=== PATIENT | male | born 1965 | race Caucasian/White ===

== ENCOUNTER 2019-02-13 09:28 | Emergency (ER) | payer SELFPAY ==
[2019-02-13] MEDS ORDERED: KETOROLAC TROMETHAMINE 60 MG/2 ML SDV IM ONE (09:58)
[2019-02-13] MEDS ORDERED: DEXAMETHASONE SOD PHOS INJ 10 MG/1 ML VIAL IM ONE (09:58)
--- NOTE | 2019-02-13 10:00 | ER Document Report ---
ED Medical Screen (RME) - General Chief Complaint: Hip Pain Stated Complaint: RIGHT HIP PAIN Time Seen by Provider: 02/13/19 09:58 Mode of Arrival: Ambulatory Information source: Patient Notes: 54-year-old male presented to ED for complaint of pain in his right hip right groin down his right leg to just below his knee. He states he did not fall or injure himself. He does smoke. He states this started yesterday. I have greeted and performed a rapid initial assessment of this patient. A comprehensive ED assessment and evaluation of the patient, analysis of test results and completion of medical decision making process will be conducted by an additional ED providers. TRAVEL OUTSIDE OF THE [place] IN LAST 30 DAYS: No - Related Data Allergies/Adverse Reactions: No Known Allergies Allergy (Unverified 02/13/19 09:48) Past Medical History - Social History Frequency of alcohol use: Occasional Drug Abuse: None Physical Exam - Vital signs Vitals: Temp Pulse Resp BP Pulse Ox 97.9 F 110 H 16 143/107 H 95 02/13/19 09:36 02/13/19 09:36 02/13/19 09:36 02/13/19 09:36 02/13/19 09:36 Course - Vital Signs Vital signs: Temp Pulse Resp BP Pulse Ox 97.9 F 110 H 16 143/107 H 95 02/13/19 09:36 02/13/19 09:36 02/13/19 09:36 02/13/19 09:36 02/13/19 09:36
--- NOTE | 2019-02-13 10:46 | RADIOLOGY REPORT (SQ) ---
EXAM DESCRIPTION: L SPINE WHOLE COMPLETED DATE/TIME: 02/13/2019 10:30 am REASON FOR STUDY: Pain COMPARISON: None. NUMBER OF VIEWS: Five views including obliques. TECHNIQUE: AP, lateral, oblique, and sacral radiographic images acquired of the lumbar spine. LIMITATIONS: None. FINDINGS: MINERALIZATION: Normal. SEGMENTATION: There are 5 lumbar-type vertebral bodies. There is no transition anatomy at the lumbos acral junction. ALIGNMENT: Normal. VERTEBRAE: The lumbar vertebral body heights are preserved. There is no fracture. DISCS: The intervertebral disc spaces are preserved. There is mild endplate osteophyte formation thr oughout the lumbar spine. POSTERIOR ELEMENTS: No pars interarticularis defects. HARDWARE: None in the spine. PARASPINAL SOFT TISSUES: Mild atherosclerotic calcification of the abdominal aorta. PELVIS: Intact. OTHER: No other finding. IMPRESSION: No fracture or malalignment of the lumbar spine. TECHNICAL DOCUMENTATION: JOB ID: [id number] [employer]- All Rights Reserved Reading location - IP/workstation name: [email or web address]
--- NOTE | 2019-02-13 10:48 | RADIOLOGY REPORT (SQ) ---
EXAM DESCRIPTION: HIP RIGHT AP/LATERAL COMPLETED DATE/TIME: 02/13/2019 10:30 am REASON FOR STUDY: Pain COMPARISON: None. NUMBER OF VIEWS: Two views. TECHNIQUE: AP pelvis and additional frog-leg view of the right hip. LIMITATIONS: None. FINDINGS: MINERALIZATION: Normal. RIGHT HIP: No fracture or dislocation. Mild osteophyte formation at the superolateral aspect of the acetabulum. LEFT HIP: No fracture or dislocation. PUBIS AND ISCHIUM: The ilioischial and iliopectineal lines are intact. There is no diastasis of the pubic symphysis. PELVIS: No fracture. SACRUM: The sacrum is obscured by overlying bowel. SOFT TISSUES: No findings. OTHER: No other finding. IMPRESSION: 1. No acute fracture or dislocation of the right hip. 2. Mild right femoroacetabular joint osteoarthrosis. TECHNICAL DOCUMENTATION: JOB ID: [id number] [employer]- All Rights Reserved Reading location - IP/workstation name: [email or web address]
--- NOTE | 2019-02-13 10:59 | ER Document Report ---
HPI - HPI Patient complains to provider of: Right hip pain Time Seen by Provider: 02/13/19 09:58 Onset: Yesterday Onset/Duration: Sudden Quality of pain: Achy Severity: Severe Pain Level: 5 Context: This 54-year-old male presents emergency department with complaints of right hip pain that started yesterday morning. He reports it hurt all day was difficult to sleep he took Aleve without relief of symptoms. He remembers tweaking the hip Tuesday when he was playing golf. Patient works at a golf course. He denies past medical history of injury to the hip. No other complaints such as fever vomiting diarrhea denies back pain. Associated Symptoms: None Exacerbated by: Denies, Movement Relieved by: Denies Similar symptoms previously: No Recently seen / treated by doctor: No - REPRODUCTIVE Reproductive: DENIES: : Past Medical History - General Information source: Patient - Social History Smoking Status: Unknown if Ever Smoked Cigarette use (# per day): No Frequency of alcohol use: Occasional Drug Abuse: None Occupation: Works at a golf course Family History: None Patient has suicidal ideation: No Patient has homicidal ideation: No - Past Medical History Cardiac Medical History: Reports: Hx Hypertension Renal/ Medical History: Reports: Hx Kidney Stones Past Surgical History: Reports: Hx Kidney (Renal Surgery) Vertical Provider Document - CONSTITUTIONAL Agree With Documented VS: Yes Exam Limitations: No Limitations General Appearance: WD/WN, No Apparent Distress - INFECTION CONTROL TRAVEL OUTSIDE OF THE [place] IN LAST 30 DAYS: No - HEENT HEENT: Atraumatic, Normocephalic. negative: Conjuctival Injection - NECK Neck: Normal Inspection, Supple. negative: Lymphadenopathy-Left, Lymphadenopathy-Right - RESPIRATORY Respiratory: Breath Sounds Normal, No Respiratory Distress - CARDIOVASCULAR Cardiovascular: Regular Rate - GI/ABDOMEN Gastrointestinal: Abdomen Soft, Abdomen Non-Tender - BACK Back: Normal Inspection - MUSCULOSKELETAL/EXTREMETIES Musculoskeletal/Extremeties: MAEW, FROM, Tender - Right hip tender to palpate no erythema no swelling no warmth. Patient has full range of motion able to flex extend right leg without problems. Complains of pain to the hip with straight leg extension at 30 degrees. Denies back pain Course - Re-evaluation Re-evalutation: 02/13/19 10:58 54-year-old male presents emergency department with right hip pain. 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 He reports he remembers tweaking is a little on Tuesday but his hip felt okay Tuesday and Tuesday and Tuesday. Reports yesterday morning he woke up with severe pain. He took Aleve with no relief of pain. Hip/Pelvis X-Ray 02/13/19 09:59 IMPRESSION: 1. No acute fracture or dislocation of the right hip. 2. Mild right femoroacetabular joint osteoarthrosis. Lumbar Spine X-Ray 02/13/19 09:59 IMPRESSION: No fracture or malalignment of the lumbar spine. 02/13/19 11:22 Patient was instructed on osteoarthritis. He was instructed on NSAIDs anti- inflammatories for the pain he was also instructed that his blood pressure was very high and he needs follow-up with primary care provider for that. He reports his blood pressure is always high. He was warned of the risk of having high blood pressure to include stroke. He verbalized understanding to all instructions. Dictation of this chart was performed using voice recognition software; therefore, there may be some unintended grammatical errors. - Vital Signs Vital signs: Temp Pulse Resp BP Pulse Ox 97.9 F 110 H 16 143/107 H 95 02/13/19 09:36 02/13/19 09:36 02/13/19 09:36 02/13/19 09:36 02/13/19 09:36 - Diagnostic Test Radiology reviewed: Image reviewed, Reports reviewed Discharge - Discharge Clinical Impression: Right hip pain Osteoarthritis Qualifiers: Osteoarthritis location: hip Osteoarthritis type: unspecified Laterality: right Qualified Code(s): M16.11 - Unilateral primary osteoarthritis, right hip Condition: Stable Disposition: HOME, SELF-CARE Instructions: Anti-Inflammatory Medication ([facility]), Osteoarthritis ([facility]) Additional Instructions: *You have been evaluated for right hip pain, osteoarthritis *Follow up with orthopedics for continued pain *Take medication as prescribed *Return to ED for worsening condition, changes, needs Monitor your blood pressure. Your blood pressure was elevated today. This may be because you were anxious, in pain or because you need medication. It is important to follow up with your primary care provider for full evaluation. Prescriptions: Naproxen [EC-Naproxen] 500 mg PO BID #15 tablet.dr Forms: Elevated Blood Pressure, Return to Work
[2019-02-13 11:28] VITALS: BP 140/95
== END 2019-02-13 11:25 | disposition home or self-care (01) ==
LOC: ER 09:28
DX: M16.11 Unilateral primary osteoarthritis, right hip (principal); M25.551 Pain in right hip; I10 Essential (primary) hypertension
CPT/HCPCS: 73502; 72110; J1885; J1100